=== PATIENT | female | born 1950 | race Caucasian/White ===

== ENCOUNTER 2019-11-28 16:01 | Emergency (ER) | payer MEDICARE, OTHER ==
[~2019-11-28] VITALS: Ht 167.6 cm; Wt 79.4 kg
[~2019-11-28 16:01] MED LIST: HYDROCHLOROTH12.5 M1 PO; IBUPROFEN 800800 M1 PO; INDERAL LA60 M1 PO; MEDROLDOSEPACK PO; POTASSIUM20 PO; PROAIR HFA8.5 GM INH; PROMETHAZINE D480 ML PO; TESSALON PERLE100 MG PO; ZPAK PO
[2019-11-28 16:46] LABS: INFLUENZA A ANTIGEN Negative (Negative); INFLUENZA B ANTIGEN Negative (Negative)
[2019-11-28] MEDS ORDERED: PROMETH-CODEIN 65 ML PO (17:47)
[2019-11-28] MEDS ORDERED: CEFDINIR300 MG PO (17:47)
[2019-11-28 18:19] VITALS: BP 134/88
== END 2019-11-28 18:20 | disposition home or self-care (01) ==
LOC: M.ERS 16:01
PROVIDERS: Nurse Practitioner Family
DX: J20.9 Acute bronchitis, unspecified (principal); I10 Essential (primary) hypertension; G43.909 Migraine, unspecified, not intractable, without status migrainosus; Z90.710 Acquired absence of both cervix and uterus; Z88.2 Allergy status to sulfonamides; Z90.49 Acquired absence of other specified parts of digestive tract

== ENCOUNTER → 2021-02-23 | Outpatient (CLI) | payer MEDICARE, OTHER ==
[~2021-02-23] MED LIST changes: +CEFDINIR300 MG PO; +HYDROCODON-ACE1 EAC7 PO; +KLOR-CON 10 ER10 MEQ PO; +PROMETH-CODEIN 65 ML PO; +ZOFRAN ODT4 MG DISSOLVE
== END ==
LOC: M.MRI 07:14
PROVIDERS: ATTEND Nurse Practitioner Family
DX: I67.82 Cerebral ischemia (principal); H93.12 Tinnitus, left ear; R63.4 Abnormal weight loss; E78.5 Hyperlipidemia, unspecified; I10 Essential (primary) hypertension; G43.909 Migraine, unspecified, not intractable, without status migrainosus; G47.30 Sleep apnea, unspecified; Z88.2 Allergy status to sulfonamides; Z88.8 Allergy status to other drugs, medicaments and biological substances; Z79.899 Other long term (current) drug therapy

== ENCOUNTER 2021-03-13 21:04 | Emergency (ER) | payer MEDICARE, OTHER ==
[~2021-03-13] VITALS: Ht 167.6 cm; Wt 77.1 kg
[~2021-03-13 21:04] MED LIST changes: -HYDROCODON-ACE1 EAC7 PO; -KLOR-CON 10 ER10 MEQ PO; -ZOFRAN ODT4 MG DISSOLVE
[2021-03-13 21:39] LABS: ABSOLUTE BASOPHILS 0.1 thou/uL (0.0-0.2); ABSOLUTE EOSINOPHILS 0.2 thou/uL (0.0-0.7); ABSOLUTE LYMPHOCYTES 1.6 thou/uL (0.8-5.3); ABSOLUTE MONOCYTES 0.7 thou/uL (0.0-1.2); ABSOLUTE NEUTROPHILS 2.3 thou/uL (1.6-8.1); BASOPHILS 1.3 %; EOSINOPHILS 3.7 %; HEMATOCRIT 37.8 % (37.0-47.0); HEMOGLOBIN 13.4 gm/dL (12.0-15.0); LYMPHOCYTES 32.7 %; MCH 31.8 pg (26.0-34.0); MCHC 35.3 g/dL (28.0-37.0); MCV 90.1 fL (80.0-100.0); MONOCYTES 13.9 %; MPV 7.3 fl. (7.2-11.1); NUCLEATED RBCS 0 /100WBC; PLATELET COUNT* 218 thou/uL (150-400); POLYS 48.4 %; WBC 4.8 thou/uL (4.0-11.0)
[2021-03-13 21:44] LABS: CALCIUM 8.6 mg/dL (8.5-10.1); CREATININE 0.9 mg/dL (0.6-1.3)
[2021-03-13 21:46] LABS: POTASSIUM 2.8 mmol/L (3.5-5.1)
[2021-03-13 21:48] LABS: ALBUMIN 3.2 g/dL (3.4-5.0); MAGNESIUM 2.1 mg/dL (1.8-2.4); TOTAL BILIRUBIN 0.2 mg/dL (<0.1-1.0); TOTAL PROTEIN 7.1 g/dL (6.4-8.2)
[2021-03-13 21:55] LABS: BE 9.1 mmol/L (-2 to +3); PCO2 41.8 mmHg (35.0-45.0); pH 7.515 (7.340-7.450)
[2021-03-13 23:44] LABS: URINE BILIRUBIN NEGATIVE (Negative); URINE BLOOD NEGATIVE (Negative); URINE CLARITY CLEAR; URINE COLOR YELLOW; URINE GLUCOSE-RANDOM NEGATIVE (Negative); URINE KETONES NEGATIVE (Negative); URINE LEUKOCYTES-REFLEX NEGATIVE (Negative); URINE NITRITE-REFLEX NEGATIVE (Negative); URINE PROTEIN NEGATIVE (Negative); URINE UROBILINOGEN 0.2 E.U./dl (0.2-1.0)
[2021-03-13] MEDS ORDERED: KLOR-CON 10 ER10 MEQ PO (23:47)
[2021-03-13 23:56] VITALS: BP 125/70
--- NOTE | 2021-03-14 10:48 | EKG ---
[place] [address] ELECTROCARDIOGRAM REPORT Name: SEANAlexa ALAINACRISS Room: [facility]#: [id number] Admission: 03/13/21 Attend Phys: Discharge: 03/14/21 Date of : 46 Date of Service: 03/13/212113 Report #: [id number] THIS REPORT FOR: //name// [facility] ED Test Date: 2021-03-13 Test Time: 21:14:06 Pat Name: CRISS FOLEY Department: Room: Gender: F Websphere Administrator: MONICO : 1950 Requested By: Mariah Rodriguez Order Number: [id number] MD: Ismael Carmichael Measurements Intervals [place] Rate: 90 P: 28 PA: 54 QRS: -33 QRSD: 102 T: 52 QT: 400 QTc: 490 Interpretive Statements Sinus rhythm with frequent and consecutive pac's Short PA interval Left ventricular hypertrophy Baseline wander in lead(s) V3 Compared to ECG 10/27/2016 10:28:41 pac's now noted Sinus tachycardia no longer present Electronically Signed On 03-14-2021 10:48:28 CDT by Ismael Carmichael [email or web address] <ELECTRONICALLY SIGNED> By: Ismael Carmichael MD, [facility] 03/14/21 1048 13 13 Ismael Carmichael MD, [facility] /EPI
== END 2021-03-14 | disposition home or self-care (01) ==
LOC: M.ERS 21:04
PROVIDERS: Personal Emergency Response Attendant
DX: E87.6 Hypokalemia (principal); Z20.822 Contact with and (suspected) exposure to COVID-19; E86.0 Dehydration; I10 Essential (primary) hypertension; G43.909 Migraine, unspecified, not intractable, without status migrainosus; Z90.710 Acquired absence of both cervix and uterus; Z90.49 Acquired absence of other specified parts of digestive tract; Z88.2 Allergy status to sulfonamides

== ENCOUNTER 2021-03-16 11:11 | Emergency (ER) | payer MEDICARE, OTHER ==
[~2021-03-16] VITALS: Ht 167.6 cm; Wt 77.1 kg
[~2021-03-16 11:11] MED LIST changes: +KLOR-CON 10 ER10 MEQ PO
[2021-03-16 11:59] LABS: ABSOLUTE EOSINOPHILS 0.1 thou/uL (0.0-0.7); ABSOLUTE LYMPHOCYTES 1.1 thou/uL (0.8-5.3); ABSOLUTE MONOCYTES 0.6 thou/uL (0.0-1.2); ABSOLUTE NEUTROPHILS 2.6 thou/uL (1.6-8.1); BASOPHILS 0.6 %; EOSINOPHILS 2.3 %; HEMATOCRIT 35.6 % (37.0-47.0); HEMOGLOBIN 12.7 gm/dL (12.0-15.0); LYMPHOCYTES 25.4 %; MCH 32.6 pg (26.0-34.0); MCHC 35.7 g/dL (28.0-37.0); MCV 91.3 fL (80.0-100.0); MONOCYTES 13.7 %; MPV 6.6 fl. (7.2-11.1); NUCLEATED RBCS 0 /100WBC; PLATELET COUNT* 210 thou/uL (150-400); RBC 3.91 mil/uL (4.20-5.00); RDW-CV 13.2 % (10.5-14.5); WBC 4.4 thou/uL (4.0-11.0)
[2021-03-16 12:10] LABS: CALCIUM 9.1 mg/dL (8.5-10.1); CREATININE 0.7 mg/dL (0.6-1.3); POTASSIUM 3.2 mmol/L (3.5-5.1)
[2021-03-16 12:16] LABS: TOTAL BILIRUBIN 0.1 mg/dL (<0.1-1.0); TOTAL PROTEIN 6.8 g/dL (6.4-8.2)
[2021-03-16] MEDS ORDERED: HYDROCODON-ACE1 EAC7 PO (13:06)
[2021-03-16] MEDS ORDERED: ZOFRAN ODT4 MG DISSOLVE (13:06)
[2021-03-16 13:50] VITALS: BP 130/71
--- NOTE | 2021-03-16 15:51 | EKG ---
[place] [address] ELECTROCARDIOGRAM REPORT Name: BRADLEY ALAINACRISS Room: [facility]#: [id number] Admission: 03/16/21 Attend Phys: Discharge: 03/16/21 Date of : 46 Date of Service: 03/16/21 1147 Report #: [id number] THIS REPORT FOR: //name// [facility] ED Test Date: 2021-03-16 Test Time: 11:47:17 Pat Name: CRISS FOLEY Department: Room: Gender: F Injection Machine Operator: EMILEE : 1950 Requested By: Jeff Reardon Order Number: [id number] MD: Casimiro Gil Measurements Intervals [place] Rate: 76 P: 22 GA: 135 QRS: -33 QRSD: 96 T: 21 QT: 374 QTc: 421 Interpretive Statements Sinus rhythm Abnormal R-wave progression, early transition Left ventricular hypertrophy Compared to ECG 03/13/2021 21:14:06 Short GA interval no longer present and PACs are no longer noted Electronically Signed On 03-16-2021 15:50:59 CDT by Casimiro Gil [email or web address] <ELECTRONICALLY SIGNED> By: Casimiro Gil MD, [facility] 03/16/21 1550 1147 1147 Casimiro Gil MD, [facility] /EPI
== END 2021-03-16 13:51 | disposition home or self-care (01) ==
LOC: M.ERS 11:11
PROVIDERS: Family Medicine
DX: R53.1 Weakness (principal); R10.84 Generalized abdominal pain; R42 Dizziness and giddiness; Z88.2 Allergy status to sulfonamides; I10 Essential (primary) hypertension; G43.909 Migraine, unspecified, not intractable, without status migrainosus; Z90.710 Acquired absence of both cervix and uterus; Z90.49 Acquired absence of other specified parts of digestive tract

== ENCOUNTER 2021-03-27 07:05 | Emergency (ER) | payer MEDICARE, OTHER ==
[~2021-03-27] VITALS: Ht 167.6 cm; Wt 77.1 kg
[~2021-03-27 07:05] MED LIST changes: +HYDROCODON-ACE1 EAC7 PO; +ZOFRAN ODT4 MG DISSOLVE
[2021-03-27 07:37] LABS: ABSOLUTE BASOPHILS 0.1 thou/uL (0.0-0.2); ABSOLUTE EOSINOPHILS 0.2 thou/uL (0.0-0.7); ABSOLUTE LYMPHOCYTES 2.1 thou/uL (0.8-5.3); ABSOLUTE MONOCYTES 0.6 thou/uL (0.0-1.2); ABSOLUTE NEUTROPHILS 1.8 thou/uL (1.6-8.1); BASOPHILS 1.3 %; EOSINOPHILS 3.8 %; HEMATOCRIT 38.4 % (37.0-47.0); HEMOGLOBIN 13.4 gm/dL (12.0-15.0); LYMPHOCYTES 44.5 %; MCH 32.1 pg (26.0-34.0); MCHC 34.8 g/dL (28.0-37.0); MCV 92.3 fL (80.0-100.0); MONOCYTES 12.6 %; MPV 6.7 fl. (7.2-11.1); NUCLEATED RBCS 0 /100WBC; PLATELET COUNT* 226 thou/uL (150-400); POLYS 37.8 %; RBC 4.16 mil/uL (4.20-5.00); RDW-CV 13.5 % (10.5-14.5); WBC 4.8 thou/uL (4.0-11.0)
[2021-03-27 07:47] LABS: CALCIUM 8.7 mg/dL (8.5-10.1); CREATININE 0.9 mg/dL (0.6-1.3)
[2021-03-27 07:53] LABS: POTASSIUM 2.8 mmol/L (3.5-5.1)
[2021-03-27 08:01] LABS: ALBUMIN 3.1 g/dL (3.4-5.0); MAGNESIUM 1.8 mg/dL (1.8-2.4); TOTAL BILIRUBIN 0.4 mg/dL (<0.1-1.0); TOTAL PROTEIN 7.4 g/dL (6.4-8.2)
[2021-03-27] MEDS ORDERED: POTASSIUM20 PO (08:22)
[2021-03-27 08:23] LABS: CK-MB MASS 0.5 ng/mL (<0.5-3.6)
[2021-03-27 08:32] VITALS: BP 158/92
--- NOTE | 2021-03-28 11:47 | EKG ---
[place] [address] ELECTROCARDIOGRAM REPORT Name: BRADLEY COURTNEYCRISS EDMONDS Room: [facility]#: [id number] Admission: 03/27/21 Attend Phys: Discharge: 03/27/21 Date of : 46 Date of Service: 03/27/21711 Report #: [id number] THIS REPORT FOR: //name// [facility] ED Test Date: 2021-03-27 Test Time: 07:12:00 Pat Name: CRISS FOLEY Department: Room: Gender: F Room Service Clerk: MADAI : 1950 Requested By: Jeff Reardon Order Number: [id number] MD: Nimesh Castillo Measurements Intervals [place] Rate: 166 P: 0 RI: 53 QRS: -40 QRSD: 86 T: 113 QT: 289 QTc: 481 Interpretive Statements Supraventricular tachycardia Left anterior fascicular block Abnormal R-wave progression, late transition LVH with secondary repolarization abnormality Compared to ECG 03/16/2021 11:47:17 Left anterior fascicular block now present Early repolarization now present Sinus rhythm no longer present Electronically Signed On 03-28-2021 11:47:29 CDT by Nimesh Castillo [email or web address] <ELECTRONICALLY SIGNED> By: Nimesh Castillo MD, [facility] 03/28/21 1147 1 1 Nimesh Castillo MD, [facility] /EPI
--- NOTE | 2021-03-28 11:48 | EKG ---
[place] [address] ELECTROCARDIOGRAM REPORT Name: BRADLEY COURTNEYCRISS EDMONDS Room: [facility]#: [id number] Admission: 03/27/21 Attend Phys: Discharge: 03/27/21 Date of : 46 Date of Service: 03/27/21 0732 Report #: [id number] THIS REPORT FOR: //name// [facility] ED Test Date: 2021-03-27 Test Time: 07:32:22 Pat Name: CRISS FOLEY Department: Room: Gender: F Operations Officer [employer] Department: MADAI : 1950 Requested By: Jeff Reardon Order Number: [id number] MD: Nimesh Castillo Measurements Intervals [place] Rate: 102 P: 51 GA: 150 QRS: -38 QRSD: 98 T: 82 QT: 359 QTc: 468 Interpretive Statements Sinus tachycardia Abnormal R-wave progression, late transition LVH by voltage Left anterior fascicular block Compared to ECG 03/27/2021 07:12:00 Supraventricular tachycardia no longer present Electronically Signed On 03-28-2021 11:48:03 CDT by Nimesh Castillo [email or web address] <ELECTRONICALLY SIGNED> By: Nimesh Castillo MD, [facility] 03/28/21 1148 0732 0732 Nimesh Castillo MD, [facility] /EPI
== END 2021-03-27 08:32 | disposition home or self-care (01) ==
LOC: M.ERS 07:05
PROVIDERS: Family Medicine
DX: I47.1 Supraventricular tachycardia (principal); E87.6 Hypokalemia; G43.909 Migraine, unspecified, not intractable, without status migrainosus; I10 Essential (primary) hypertension; Z90.49 Acquired absence of other specified parts of digestive tract; Z88.2 Allergy status to sulfonamides; Z90.710 Acquired absence of both cervix and uterus